=== PATIENT | female | born 1975 | race Caucasian/White ===

== ENCOUNTER 2023-08-07 11:29 | Outpatient (REF) | payer BC, SELFPAY ==
[2023-08-07 11:33] LABS: MANUAL DIFF FLAG NO
[2023-08-07 12:16] LABS: Basophils Percent Auto 0.5 % (0-2); Eosinophils Absolute Auto 0.3 X10*3/uL (0.0-0.4); Eosinophils Percent Auto 3.7 % (0-4); Imm Gran Abs Auto 0.04 X10*3/uL (0.00-0.03); Imm Gran Pct Auto 0.5 % (0.0-0.4); Lymphocytes Absolute Auto 2.4 X10*3/uL (1.2-4.9); Lymphocytes Percent Auto 29.9 % (20-40); Mean Corpuscular HGB Conc 33.3 g/dl (31.0-35.0); Mean Corpuscular Hemoglobin 30.5 pg (27.0-33.0); Mean Corpuscular Volume 91.5 fL (80.0-98.0); Mean Platelet Volume 11.3 fL (9.4-12.3); Monocytes Absolute Auto 0.5 X10*3/uL (0.1-1.2); Monocytes Percent Auto 5.7 % (2-11); Neutrophils Absolute Auto 4.7 x10*3/uL (2.0-8.3); Neutrophils Percent Auto 59.7 % (45-73); Platelet Count 311 X10*3/uL (160-400); Red Blood Count 4.59 X10*6/uL (4.20-5.50); Red Cell Distribution Width 12.5 % (11.0-16.0); White Blood Count 7.9 X10*3/uL (4.8-10.8)
[2023-08-07 12:21] LABS: Appearance Urine Cloudy; Color Urine Dark Yellow; Glucose Urine UA Negative (Negative); Leukocyte Esterase Urine Negative (Negative); Nitrite Urine Negative (Negative); PH 5.5 (5.0-9.0); Specific Gravity - Urine 1.025 (1.005-1.025); Urine Blood Negative (Negative); Urine Ketones Trace mg/dL (Negative); Urine Protein Negative (Neg-Trace)
[2023-08-07 12:27] LABS: Bacteria Urine 1+ (None Seen); Hyaline Casts Urine 0-2 /LPF (0-2); WBC Urine 0-5 /HPF (0-5)
[2023-08-07 12:48] LABS: Alanine Aminotransferase 16 U/L (0-31); Albumin Level 3.9 g/dL (3.5-5.0); Alkaline Phosphatase 91 U/L (39-117); Anion Gap 12 (12-20); Aspartate Amino Transferase 16 U/L (5-31); Bilirubin Total 0.7 mg/dL (0.0-1.0); Blood Urea Nitrogen 11 mg/dL (9-16); Carbon Dioxide 26 mmol/L (22-29); Chloride 105 mmol/L (96-108); Cholesterol 222 mg/dL (<200); Estimated Glomerular Filt Rate > 60; Glucose Fasting 145 mg/dL (60-99); HDL Cholesterol 43 mg/dL (>40); LDL Cholesterol Calculated 149 mg/dL (<100); Potassium 3.3 mmol/L (3.3-5.1); Sodium 140 mmol/L (135-145); Total Protein 6.9 g/dL (6.5-8.0); Triglycerides 154 mg/dL (<150)
== END 2023-08-07 11:30 | disposition home or self-care (01) ==
LOC: HO.LNP 11:29
PROVIDERS: Visit Provider Internal Medicine
DX: Z00.00 Encounter for general adult medical examination without abnormal findings (principal); I10 Essential (primary) hypertension
CPT/HCPCS: 80053; 80061; 81001; 85025

== ENCOUNTER 2024-04-01 08:09 | Outpatient (AMB) | payer BC, SELFPAY ==
--- NOTE | 2024-04-01 08:17 | MHC.OFFVIS ---
Vital Signs 04/01/24 08:23 Height 5 ft 6 in Weight 217 lb BMI 35.0 BP 142/73 H Blood Pressure Location Rt brachial Position Sitting Pulse 92 Intake Visit Reasons: localized swelling mass and lump unspecified Intake Note: Patient referred by pcp Dr. Cunningham for small bump on mid chest. Noticed smaller bump next to original spot 1m ago. Patient c/o: growths getting larger. No hx of skin CA. [employer] Required: No Accompanied by: Self / Same As Patient Allergies No Known Allergies Allergy (Verified 04/01/24 08:21) Medication List - Last Reconciled 04/01/24 by Lorenzo Huber MD bupropion HCl XL 300 mg PO DAILY valsartan-hydrochlorothiazide 80-12.5 mg 1 tab PO DAILY venlafaxine ER 150 mg PO DAILY HPI Comments Details: Patient presents for evaluation of 2 anterior chest wall sebaceous cyst. One of them has been there for almost 9 months time. The other wound is been there for a few weeks time. The latter 1 has become reddened and swollen. She would like to have these removed. Chart was reviewed patient evaluated. No such lesions elsewhere [facility] Medical History (Updated 04/01/24 @ 08:22 by FREDDIE Frye) HTN (hypertension) Social History (Updated 04/01/24 @ 08:23 by FREDDIE Frye) Patient Tobacco Use Status: Never used Tobacco Physical Exam Vital Signs: Last Vital Signs Pulse 92 04/01/24 08:23 BP 142/73 H 04/01/24 08:23 BMI result Body Mass Index 35.0 Chest Other: Proximally 3 x 2 cm sebaceous cyst left of midline chest and at proximally 2 x 1 cm sebaceous cyst lateral to this. The lateral 1 is mildly erythematous and tender. No evidence of any fluctuance. Assessment & Plan Assessment & Plan (1) Infected sebaceous cyst of skin: Code(s): L72.3 - Sebaceous cyst; L08.9 - Local infection of the skin and subcutaneous tissue, unspecified Category: Surgical Plan Current plan is treat the patient conservatively initially with antibiotics and local wound care and wants the inflammatory/infectious process has resolved, excision will be undertaken. All questions answered. Patient will see me approximate 1 week's time or p.r.n.. Script for antibiotics given. Medications: New cephalexin 500 mg PO TID 30 caps 0RF Coding Level of Care Code New Pt Level 4 (79703) Diagnoses Infected sebaceous cyst of skin L72.3; L08.9
[2024-04-01 08:23] VITALS: BP 142/73; PULSE 92; BMI 35.0
== END 2024-04-01 08:35 | disposition home or self-care (01) ==
PROVIDERS: PCP Internal Medicine; Referring Provider Internal Medicine; Visit Provider Surgery
DX: L72.3 Sebaceous cyst (principal); L08.9 Local infection of the skin and subcutaneous tissue, unspecified
CPT/HCPCS: 99204

== ENCOUNTER → 2024-04-01 08:09 | Outpatient (BNVA) | payer BC, SELFPAY | PROVIDERS: PCP Internal Medicine; Referring Provider Internal Medicine; Visit Provider Surgery ==

== ENCOUNTER 2024-04-08 10:52 | Outpatient (REF) | payer BC, SELFPAY | END 2024-04-08 10:53 | disposition home or self-care (01) | LOC: HO.LNP 10:52 | PROVIDERS: PCP Internal Medicine; Visit Provider Surgery | DX: L72.3 Sebaceous cyst (principal); L08.9 Local infection of the skin and subcutaneous tissue, unspecified; D17.1 Benign lipomatous neoplasm of skin and subcutaneous tissue of trunk | CPT/HCPCS: 11404; 88304 ==

== ENCOUNTER 2024-04-12 06:21 | Day surgery (SDC) | payer BC, SELFPAY ==
[2024-04-10 11:38] VITALS: BMI 34.9
--- NOTE | 2024-04-11 10:27 | P.CONAN_ITS ---
Documented by User: Maura Leo NP 04/11/24 10:27 HPI - Anesthesia Eval Consult details Narrative: 49yo F for ?Colonoscopy PMFSH Active Problems Active Problems: All Active Problems Lipoma of anterior chest wall (Acute) Infected sebaceous cyst of skin (Acute) Past Medical History Medical History (Updated 04/10/24 @ 11:35 by Delia Hampton RN) Anxiety Depression Elevated blood sugar HTN (hypertension) Surgical History Surgical History (Updated 04/12/24 @ 06:41 by Najma Quintanilla RN) H/O removal of cyst Hx of colonoscopy No pertinent past surgical history Social History Social History Patient Tobacco Use Status: Never used Tobacco Are you DNR?: No Advance Directives: No Advance Directives Information Provided: Yes Recently lost weight without trying: No Nutrition Risks: No Nutritional Risk Patient : No FDLMP: last month Meds Allergies Allergy/AdvReac Type Severity Reaction Status Date / Time No Known Allergies Allergy Verified 04/08/24 11:00 Home Medications ?Medication ?Instructions ?Recorded ?Confirmed ?Last Taken ?Type bupropion HCl 300 mg 24 hr tablet, 300 mg PO DAILY 04/01/24 04/12/24 04/11/24 Hi story extended release valsartan 80 1 tab PO DAILY 04/01/24 04/12/24 04/11/24 History mg-hydrochlorothiazide 12.5 mg tablet venlafaxine 150 mg 150 mg PO DAILY 04/01/24 04/12/24 04/11/24 History capsule,extended release 24 hr Exam Height,Weight and Vital Signs: Height 5 ft 6 in Weight 97.976 kg Assessment and Plan Assessment Anesthesia Assessment: Chart Reviewed Documented by User: Dwight Soriano MD 04/12/24 07:06 PMFSH Past Medical History Medical History (Updated 04/10/24 @ 11:35 by Delia Hampton RN) Anxiety Depression Elevated blood sugar HTN (hypertension) Family History Family history of problems with anesthesia: No Surgical History Surgical History (Updated 04/12/24 @ 06:41 by Najma Quintanilla RN) H/O removal of cyst Hx of colonoscopy No pertinent past surgical history History of Problems with Anesthesia: No Social History Social History Patient Tobacco Use Status: Never used Tobacco Are you DNR?: No Advance Directives: No Advance Directives Information Provided: Yes Recently lost weight without trying: No Nutrition Risks: No Nutritional Risk Patient : No FDLMP: last month Meds Allergies Allergy/AdvReac Type Severity Reaction Status Date / Time No Known Allergies Allergy Verified 04/08/24 11:00 Home Medications ?Medication ?Instructions ?Recorded ?Confirmed ?Last Taken ?Type bupropion HCl 300 mg 24 hr tablet, 300 mg PO DAILY 04/01/24 04/12/24 04/11/24 History extended release valsartan 80 1 tab PO DAILY 04/01/24 04/12/24 04/11/24 History mg-hydrochlorothiazide 12.5 mg tablet venlafaxine 150 mg 150 mg PO DAILY 04/01/24 04/12/24 04/11/24 History capsule,extended release 24 hr Exam Airway Mallampati Class: II TM Dist: >3cm Neck ROM: Full Assessment and Plan Assessment Anesthesia Assessment: Anesthesia Plan Discussed Final Anesthetic Review Family History of Problems with Anesthesia: No History of Problems with Anesthesia: No NPO: Yes ASA Class: II Final Preanesthetic Review: No Changes in Pt Med Stat, Meds/Allgs Chart Reviewed, Consent Obtained/Reviewed and Anes Risks/Benef Reviewed Patient Risk: Intermediate Procedure Risk: Low Anesthetic Plan Anesthetic Plan: TIVA Disposition: Standard PACU
[2024-04-12 06:25] VITALS: BP 142/85; PULSE 92; RESP 18; TEMP 36.2; O2SAT 98; BMI 34.7
[2024-04-12 06:51] LABS: UPreg QC Valid YES; Urine Pregnancy NEGATIVE (NEGATIVE)
[2024-04-12] MEDS: Lactated Ringers 1,000 ML 100 ML IVCONT (06:51)
--- NOTE | 2024-04-12 07:24 | P.HPSUR_ITS ---
Pre-Procedural Eval Section A - 24 Hr Update-Section A only Date of Service: 04/12/24 Section B - Complete if H&P > 30 days Chief Complaint: Encounter for screening for malignant neoplasm of Details of Present Illness: see H&P no changes Relevant Family History (Specify if Yes): No Relevant Social History: None Present Medications: see Short Stay Collaborative assessment Medical History: No relevant PMH History of Previous Operations: No relevant previous surgery Allergies: Allergies Allergy/AdvReac Type Severity Reaction Status Date / Time No Known Allergies Allergy Verified 04/08/24 11:00 Review of Systems Sugical H&P ROS: Negative: Constitution, Cardiovascular, Respiratory, Neurological, Psychiatric, Hem-Onc, Allergic/Immunologic, Gastrointestinal, Genitourinary, Musculoskeletal, Integumentary, Endocrine and Eyes/Ears/No se/Throat Exam Surgical H&P Exam: Normal: HEENT, Normal: Heart, Normal: Lungs, Normal: Extremities, Normal: Abdomen, Normal: Skin and Normal: Neurological Plan Diagnosis/Plan: Unchanged I have reviewed the history and physical and performed a pertinent physical examination on my patient. No changes have occurred unless specified. Time Spent With Patient Time: Total time managing care of this patient today ____ minutes.
[2024-04-12 08:12] VITALS: BP 102/67; PULSE 81; RESP 16; TEMP 36.6; O2SAT 98
--- NOTE | 2024-04-12 08:18 | PM.OP ---
Brief Operative Note Date of Service: 04/12/24 Pre-op diagnosis: screening Post-op diagnosis: same Procedure: colonoscpy Surgeon: Ricardo Hull MD Anesthesia: MAC Was an Watershed Coordinator used for this Procedure?: No Estimated blood loss (mL): 0 Pathology: none sent Condition: stable Disposition: PACU
[2024-04-12 08:27] VITALS: BP 122/81; PULSE 81; RESP 16; TEMP 36.6; O2SAT 96
--- NOTE | 2024-04-12 08:45 | OP_ITS ---
DATE OF SERVICE: 04/12/2024 SURGEON: Ricardo Hull MD INDICATIONS: Colon cancer screening. PREOPERATIVE DIAGNOSIS: POSTOPERATIVE DIAGNOSIS: PROCEDURE PERFORMED: Colonoscopy to the terminal ileum. ESTIMATED BLOOD LOSS: COMPLICATIONS: ANESTHESIA: Monitored anesthesia care. ASSISTANTS: SPECIMENS: DESCRIPTION OF PROCEDURE: A history and physical were performed. The risks and benefits of the procedure were explained to the patient, and informed consent was obtained. The patient was placed in the left lateral decubitus position. A digital rectal exam was performed and was found to be normal. The Olympus pediatric video colonoscope was introduced into the rectum and advanced to the cecum without difficulty. The cecum was identified by transillumination, palpation, and identification of ileocecal valve. Examination was performed, and the scope was removed. She tolerated the procedure well and was taken to recovery in stable condition. FINDINGS: The terminal ileum was examined and appeared normal. The visualized colonic mucosa was normal. The quality of prep was good. No polyps were identified. Retroflexed examination was normal. IMPRESSION: Normal colonoscopy. RECOMMENDATION: 1. Follow up as needed. 2. Repeat colonoscopy is recommended in 10 years for average-risk individuals. MD MANDA Pollack/ROMELIAL / [id number]
== END 2024-04-12 08:55 | disposition home or self-care (01) ==
PROVIDERS: Nurse Practitioner; PCP Internal Medicine; Visit Provider Internal Medicine Gastroenterology
PROC: 0DJD8ZZ Inspection of Lower Intestinal Tract, Via Natural or Artificial Opening Endoscopic (ICD-10-PCS; CPT 45378; principal; 2024-04-12 07:30)
DX: Z12.11 Encounter for screening for malignant neoplasm of colon (principal); I10 Essential (primary) hypertension; F41.9 Anxiety disorder, unspecified; F32.A Depression, unspecified; R73.9 Hyperglycemia, unspecified; Z79.899 Other long term (current) drug therapy
CPT/HCPCS: 45378; 81025; J2704

== ENCOUNTER → 2024-04-18 12:53 | Outpatient (BNVA) | payer BC, SELFPAY | PROVIDERS: PCP Internal Medicine; Visit Provider Surgery ==

== ENCOUNTER 2024-04-22 10:31 | Outpatient (AMB) | payer BC, SELFPAY ==
--- NOTE | 2024-04-22 10:32 | MHC.OFFVIS ---
Intake Visit Reasons: s/p cyst excision Intake Note: Patient here s/p cyst excision/ mid chest on 04-08-24. Patient reports Cephalexin course completed. Patient c/o: redness, inflammation. Managed Care Nurse Required: No Accompanied by: Self / Same As Patient Allergies No Known Allergies Allergy (Verified 04/22/24 10:33) HPI Comments Details: Patient presents for follow-up. She has some clear drainage from the incision but otherwise no other issues. Pathology was benign. PFSH Medical History Anxiety Depression Elevated blood sugar HTN (hypertension) Surgical History H/O removal of cyst Hx of colonoscopy No pertinent past surgical history Social History Patient Tobacco Use Status: Never used Tobacco Physical Exam Chest Other: Most central part of the incision is mildly remaining incision is clean dry and intact healing uneventfully Assessment & Plan Assessment & Plan (1) Postop check: Code(s): Z09 - Encounter for follow-up examination after completed treatment for conditions other than malignant neoplasm Category: Surgical Plan Patient has been given local instructions and will otherwise follow-up p.r.n.. All questions answered. Coding Level of Care Code Global (30567) Diagnoses Postop check Z09
== END 2024-04-22 10:38 | disposition home or self-care (01) ==
PROVIDERS: PCP Internal Medicine; Visit Provider Surgery
DX: Z09 Encounter for follow-up examination after completed treatment for conditions other than malignant neoplasm (principal)
CPT/HCPCS: 99024

== ENCOUNTER → 2024-04-22 10:31 | Outpatient (BNVA) | payer BC, SELFPAY | PROVIDERS: PCP Internal Medicine; Visit Provider Surgery ==

== ENCOUNTER 2024-06-24 14:23 | Outpatient (AMB) | payer BC, SELFPAY ==
[2024-06-24 14:27] VITALS: BMI 32.4
--- NOTE | 2024-06-24 14:27 | A.OFFVIS_ITS ---
VS Expanded 06/24/24 14:27 06/27/24 12:40 Height 5 ft 6 in 5 ft 6 in Weight 200 lb 9.93 oz 200 lb BMI 32.4 32.3 Intake Visit Reasons: Pre-DM/LVM Allergies No Known Allergies Allergy (Verified 04/22/24 10:33) Nutrition Presentation Details: Pt presents for MNT iniital visit for Pre-DM food frequency fruits: 0-1/d fish: 0-1/wk dairy: 3-4 serving/d vegetables 3-4 x/wk starches > 20 serving/d beverages: water/juice/coffee (12-16 oz of fluids/d) etoh/smoking--denies physical activity daily life activities BS Monitoring Most Recent Diabetes Results: Cholesterol 222 mg/dL (<200) H 08/07/23 HDL Cholesterol 43 mg/dL (>40) 08/07/23 Triglycerides 154 mg/dL (<150) H 08/07/23 Creatinine 0.74 mg/dL (0.5-1.4) 08/07/23 Blood Urea Nitrogen 11 mg/dL (9-16) 08/07/23 Sodium 140 mmol/L (135-145) 08/07/23 Potassium 3.3 mmol/L (3.3-5.1) 08/07/23 Chloride 105 mmol/L (96-108) 08/07/23 Carbon Dioxide 26 mmol/L (22-29) 08/07/23 Calcium 9.0 mg/dL (8.4-10.2) 08/07/23 AST 16 U/L (5-31) 08/07/23 ALT 16 U/L (0-31) 08/07/23 Total Protein 6.9 g/dL (6.5-8.0) 08/07/23 Albumin 3.9 g/dL (3.5-5.0) 08/07/23 FNP-Kgzmani-Fs.Jeor Equation Height: 5 ft 6 in Weight: 200 lb Resting Metabolic Rate: 1561.79 Calculated Activity Level: Mild Activity Calories Needed to Maintain Weight: 2147.46 Diagnosis Nutrition problem #1: food nutri know defi As related to (etiology) #1: diagnosis As evidenced by (sign/symptom) #1: knowledge deficit of diet [facility] Medical History Anxiety Depression Elevated blood sugar HTN (hypertension) Surgical History H/O removal of cyst Hx of colonoscopy No pertinent past surgical history Social History Patient Tobacco Use Status: Never used Tobacco Assessment & Plan Assessment & Plan (1) Pre-diabetes: Code(s): R73.03 - Prediabetes Category: Medical Plan: Wt: 91 Kg ( 06/25) Est kcal needs as per MSJ: 2200 (40% carb, 30% protein/fat) Est fluid needs as per 25-30 ml/d: 2700 Est prot per day as per 1 g/kg bw: 91 Recommend fiber intake : 8-10 g per day and gradually increase to 25-28 g per day for women and 35-38 g for men or as tolerated Recommend sodium intake per day : less than 2000 mg Educated patient on: ( R = reviewed V = verbalizes understanding N/R = needs review N/A = not applicable * Food sources of carbohydrate, adequate serving sizes and its role in various health conditions: R * Differences between complex carbohydrates a simple carbohydrates, role of fiber in diet: R V N/R * Lean protein sources of foods: R * Differences between types of fats and role in diet (mono on saturated fat fatty acids, saturated fatty acids, trans fats): R V N/R * Food sources of sodium in salt and healthy modifications for heart health in kidney health: R V R/V * Vitamins and minerals: R V N/R * Healthy plate method concept: R * Physical activity: Benefits a precaution: R * Hypoglycemia protocol (rule of 15): R V N/R * Dietary prevention of Hyperglycemia: R Patient Instructions: Work on following healthy plate emthod, choosing complex carbohydrates REduce sugar in beverages aim at reducing carb to 45-60 g at meal and 0-20 g as snack Coding Level of Care Code Nutr Indiv Intake (25467) Diagnoses Pre-diabetes R73.03 Time Spent (min) 30
[2024-07-01 11:10] VITALS: BMI 32.3
== END 2024-06-24 15:17 | disposition home or self-care (01) ==
PROVIDERS: PCP Internal Medicine; Visit Provider Dietitian, Registered
DX: R73.03 Prediabetes (principal)

== ENCOUNTER → 2024-06-24 14:23 | Outpatient (BNVA) | payer BC, SELFPAY | PROVIDERS: PCP Internal Medicine; Visit Provider Dietitian, Registered | DX: R73.03 Prediabetes (principal); Z71.3 Dietary counseling and surveillance | CPT/HCPCS: 97802 ==

== ENCOUNTER 2024-08-19 10:56 | Outpatient (AMB) | payer BC, SELFPAY ==
[2024-08-19 11:16] VITALS: BMI 32.8
--- NOTE | 2024-08-19 11:16 | A.OFFVIS_ITS ---
VS Expanded 08/19/24 11:16 Height 5 ft 6 in Weight 203 lb 0.732 oz BMI 32.8 Intake Visit Reasons: Pre-DM/CONFIRMED Allergies No Known Allergies Allergy (Verified 04/22/24 10:33) Nutrition Presentation Details: Pt presents for MNT for Pre DM Pt reports gradually making diet modifications challenges with evening meals/snacks physical activity: dailylife BS Monitoring Most Recent Diabetes Results: No Data to Display PFSH Medical History Anxiety Depression Elevated blood sugar HTN (hypertension) Surgical History H/O removal of cyst Hx of colonoscopy No pertinent past surgical history Social History Patient Tobacco Use Status: Never used Tobacco Assessment & Plan Assessment & Plan (1) Pre-diabetes: Code(s): R73.03 - Prediabetes Category: Medical Plan: Wt: 91 Kg ( 06/25) Est kcal needs as per MSJ: 2200 (40% carb, 30% protein/fat) Est fluid needs as per 25-30 ml/d: 2700 Est prot per day as per 1 g/kg bw: 91 Recommend fiber intake : 8-10 g per day and gradually increase to 25-28 g per day for women and 35-38 g for men or as tolerated Recommend sodium intake per day : less than 2000 mg Educated patient on: ( R = reviewed V = verbalizes understanding N/R = needs review N/A = not applicable * Food sources of carbohydrate, adequate serving sizes and its role in various health conditions: R * Differences between complex carbohydrates a simple carbohydrates, role of fiber in diet: R * Lean protein sources of foods: R * Differences between types of fats and role in diet (mono on saturated fat fatty acids, saturated fatty acids, trans fats): R * Food sources of sodium in salt and healthy modifications for heart health in kidney health: R V R/V * Vitamins and minerals: R V N/R * Healthy plate method concept: R * Physical activity: Benefits a precaution: R * Hypoglycemia protocol (rule of 15): R V N/R * Dietary prevention of Hyperglycemia: R Patient Instructions: Engage in physical activity routine 15 minutes 3 times /wk Coding Level of Care Code Nutr Indiv Subseq (88468) Diagnoses Pre-diabetes R73.03 Time Spent (min) 25
== END 2024-08-19 11:48 | disposition home or self-care (01) ==
PROVIDERS: PCP Internal Medicine; Visit Provider Dietitian, Registered
DX: R73.03 Prediabetes (principal)

== ENCOUNTER → 2024-08-19 10:56 | Outpatient (BNVA) | payer BC, SELFPAY | PROVIDERS: PCP Internal Medicine; Visit Provider Dietitian, Registered | DX: R73.03 Prediabetes (principal); Z71.3 Dietary counseling and surveillance | CPT/HCPCS: 97803 ==

== ENCOUNTER 2025-09-01 10:20 | Outpatient (REF) | payer BC, SELFPAY ==
[2025-09-01 10:24] LABS: MANUAL DIFF FLAG NO
[2025-09-01 11:19] LABS: Alanine Aminotransferase 18 U/L (0-31); Albumin Level 4.5 g/dL (3.5-5.0); Alkaline Phosphatase 84 U/L (39-117); Anion Gap 10 (12-20); Aspartate Amino Transferase 22 U/L (5-31); Blood Urea Nitrogen 19 mg/dL (9-16); Calcium 9.1 mg/dL (8.4-10.2); Carbon Dioxide 28 mmol/L (22-29); Chloride 107 mmol/L (96-108); Cholesterol 215 mg/dL (<200); Estimated Glomerular Filt Rate > 60; HDL Cholesterol 46 mg/dL (>40); Potassium 3.6 mmol/L (3.3-5.1); Sodium 141 mmol/L (135-145); Total Protein 6.9 g/dL (6.5-8.0); Triglycerides 92 mg/dL (<150)
[2025-09-01 11:20] LABS: Hematocrit 42.0 % (37.0-47.0); Hemoglobin 14.0 g/dl (12.0-16.0); Imm Gran Abs Auto 0.02 X10*3/uL (0.00-0.03); Imm Gran Pct Auto 0.3 % (0.0-0.4); Lymphocytes Absolute Auto 2.1 X10*3/uL (1.2-4.9); Mean Corpuscular HGB Conc 33.3 g/dl (31.0-35.0); Mean Corpuscular Hemoglobin 30.1 pg (27.0-33.0); Mean Corpuscular Volume 90.3 fL (80.0-98.0); NRBC Abs Auto 0.000 X10*3/uL (0.0-0.012); NRBC Pct Auto 0.0 /100WBC (0.0-0.2); Platelet Count 311 X10*3/uL (160-400); Red Blood Count 4.65 X10*6/uL (4.20-5.50); White Blood Count 6.7 X10*3/uL (4.8-10.8)
[2025-09-01 11:21] LABS: Appearance Urine Clear; Glucose Urine UA Negative (Negative); PH 6.0 (5.0-9.0); Specific Gravity - Urine 1.025 (1.005-1.025); UMIC TRIGGER UACC YES
--- OUTSIDE RECORDS SUMMARY | 2025-09-01 12:54 | XMS_ITS ---
[facility] Organization Unknown Care Team Organization Name Specialty Phone Email Start Date End Da te [facility] NULL Primary Care 08/09/2022 05/20/2024
--- OUTSIDE RECORDS SUMMARY | 2025-09-01 12:55 | XMS_ITS | Encounter Summary ---
Author Organization [facility] Address [address] [place] [address] Care Team Providers Care Reference Investigator Name Role Phone Rm Cunningham MD Primary Care Provider Encounter Details Date Type Department Care Team (Late st Contact Info) Description 08/22/[address] [facility] - Main Lab [address] [facility] [place] [address] Rm Cunningham MD [address] [place] [address] [address] [place] [address] [phone] Encounter for general adult medical examination without abnormal findings; Essential (primary) hypertension Social History Tobacco Use Types Packs/Day Years Used Date Smoking Tobacco: Never Assessed Comments Unknown Sex and Gender Information Value Date Recorded Sex Assigned at Female 05/09/2025 8:22 AM EDT Legal Sex Female 8:46 PM EST Gender Identity Female 05/09/2025 8:23 AM EDT Sexual Orientation Straight 05/09/2025 8: 23 AM EDT documented as of this encounter Plan of Treatment Upcoming Encounters Date Type Department Care Team (Late st Contact Info) Description 09/01/2025 2:00 PM EST Consult Orthopedic Surgery - [place] [address] [place] [address] Vicky Kebede PA [address] [place] [address] documented as of this encounter Procedures Procedure Name Priority Date/Time Associated Diagnosis Comments URINALYSIS WITH REFLEX MICROSCOPIC AND CULTURE Routine 08/22/2024 8:30 AM EST Encounter for general adult medical examination without abnormal findings Essential (primary) hypertension LIPID PANEL WITH REFLEX TO DIRECT LDL Routine 08/22/2024 8:30 AM EST Encounter for general adult medical examination without abnormal findings Essential (primary) hypertension CBC WITH AUTO DIFFERENTIAL Routine 08/22/2024 8:30 AM EST Encounter for general adult medical examination without abnormal findings Essential (primary) hypertension URINALYSIS WITH REFLEX MICROSCOPIC AND CULTURE Routine 08/22/2024 8:30 AM EST Encounter for general adult medical examination without abnormal findings Essential (primary) hypertension CBC AND DIFFERENTIAL Routine 08/22/2024 8:30 AM EST Encounter for general adult medical examination without abnormal findings Essential (primary) hypertension COMPREHENSIVE METABOLIC PANEL Routine 08/22/2024 8:30 AM EST Encounter for general adult medical examination without abnormal findings Essential (primary) hypertension documented in this encounter Results * Urinalysis with reflex microscopic and culture (08/22/2024 8:30 AM EST) Specific [place] Urine 1.018 1.003 - 1.030 LAB URINALYSIS - AUTOMATED METHOD 08/22/2024 1:18 PM [facility] pH, Urine 5.5 5.0 - 8.0 pH LAB URINALYSIS - AUTOMATED METHOD 08/22/2024 1:18 PM [facility] Leukocytes, Urine Negative Negative LAB URINALYSIS - AUTOMATED METHOD 08/22/2024 1:18 PM [facility] Nitrite, Urine Negative Negative LAB URINALYSIS - AUTOMATED METHOD 08/22/2024 1:18 PM [facility] Protein, Urine Negative <=Trace mg/dL LAB URINALYSIS - AUTOMATED METHOD 08/22/2024 1:18 PM [facility] Glucose, Urine Negative Negative mg/dL LAB URINALYSIS - AUTOMATED METHOD 08/22/2024 1:18 PM [facility] Ketones, Urine Negative Negative mg/dL LAB URINALYSIS - AUTOMATED METHOD 08/22/2024 1:18 PM [facility] Urobilinogen, Urine 0.2 0.2 - 1.0 mg/dL LAB URINALYSIS - AUTOMATED METHOD 08/22/2024 1:18 PM [facility] Bilirubin, Urine Negative Negative LAB URINALYSIS - AUTOMATED METHOD 08/22/2024 1:18 PM [facility] Blood, Urine Negative Negative LAB URINALYSIS - AUTOMATED METHOD 08/22/2024 1:18 PM [facility] Urine Urine specimen obtained by clean catch procedure / Unknown 08/22/2024 8:30 AM EST 08/22/2024 8:43 AM EST us Rm Cunningham MD LAB URINE ORDERABLES Final Result [facility] [address] [place] [address], [place] [phone] * (ABNORMAL) CBC auto differential (08/22/2024 8:30 AM EST) WBC 8.6 4.8 - 10.8 K/mcL LAB HEMETOLOGY METHOD 08/22/2024 8:55 AM [facility] RBC 4.60 3.80 - 4.80 M/[facility] LAB HEMETOLOGY METHOD 08/22/2024 8:55 AM [facility] Hemoglobin 13.8 11.5 - 16.0 g/dL LAB HEMETOLOGY METHOD 08/22/2024 8:55 AM [facility] Hematocrit 41.7 35.0 - 47.0 % LAB HEMETOLOGY METHOD 08/22/2024 8:55 AM [facility] MCV 91.4 79.0 - 98.0 FL LAB HEMETOLOGY METHOD 08/22/2024 8:55 AM [facility] MCH 30.3 27.0 - 32.0 pcg LAB HEMETOLOGY METHOD 08/22/2024 8:55 AM [facility] MCHC 33.1 32.0 - 37.0 g/dL LAB HEMETOLOGY METHOD 08/22/2024 8:55 AM [facility] RDW 12.7 11.0 - 15.0 % LAB HEMETOLOGY METHOD 08/22/2024 8:55 AM [facility] Platelets 294 130 - 400 K/mcL LAB HEMETOLOGY METHOD 08/22/2024 8:55 AM [facility] MPV 11.0 7.0 - 11.0 FL LAB HEMETOLOGY METHOD 08/22/2024 8:55 AM [facility] NRBC 0.0 <1.0 % LAB HEMETOLOGY METHOD 08/22/2024 8:55 AM [facility] NRBC Absolute 0.00 <0.10 K/mcL LAB HEMETOLOGY METHOD 08/22/2024 8:55 AM [facility] Neutrophils Relative 55.9 % LAB HEMETOLOGY METHOD 08/22/2024 8:55 AM [facility] Lymphocytes Relative 31.7 % LAB HEMETOLOGY METHOD 08/22/2024 8:55 AM [facility] Monocytes Relative 5.5 % LAB HEMETOLOGY METHOD 08/22/2024 8:55 AM [facility] Eosinophils Relative 5.9 % LAB HEMETOLOGY METHOD 08/22/2024 8:55 AM [facility] Basophils Relative 0.7 % LAB HEMETOLOGY METHOD 08/22/2024 8:55 AM [facility] Immature Granulocytes Relative 0.3 % LAB HEMETOLOGY METHOD 08/22/2024 8:55 AM [facility] Neutrophils Absolute 4.80 1.50 - 7.00 K/mcL LAB HEMETOLOGY METHOD 08/22/2024 8:[address] [facility] Lymphocytes Absolute 2.73 1.00 - 5.00 K/[facility] LAB HEMETOLOGY METHOD 08/22/2024 8:[address] [facility] Monocytes Absolute 0.47 0.20 - 1.00 K/[facility] LAB HEMETOLOGY METHOD 08/22/2024 8:[address] [facility] Eosinophils Absolute 0.51(H) 0.00 - 0.50 K/[facility] LAB HEMETOLOGY METHOD 08/22/2024 8:[address] [facility] Basophils Absolute 0.06 0.00 - 0.20 K/[facility] LAB HEMETOLOGY METHOD 08/22/2024 8:55 AM [facility] Immature Granulocytes Absolute 0.03 0.00 - 0.03 K/[facility] LAB HEMETOLOGY METHOD 08/22/2024 8:[address] [facility] Blood Venous blood specimen / Unknown 08/22/2024 8:30 AM EST 08/22/2024 8:43 AM EST us Rm Cunningham MD LAB BLOOD ORDERABLES Final Result [facility] [address] [place] [address], * (ABNORMAL) Lipid panel with reflex to direct LDL (08/22/2024 8:30 AM EST) Cholesterol 226(H) 0 - 200 mg/dL LAB CHEMISTRY METHOD 08/22/2024 9:[address] [facility] Triglycerides 109 0 - 150 mg/dL LAB CHEMISTRY METHOD 08/22/2024 9:56 AM [facility] HDL 56 >=40 mg/dL LAB CHEMISTRY METHOD 08/22/2024 9:[address] [facility] LDL Calculated 148(H) 0 - 100 mg/dL LAB CHEMISTRY METHOD 08/22/2024 9:[address] [facility] VLDL Cholesterol Darshan 21.8 mg/dL LAB CHEMISTRY METHOD 08/22/2024 9:56 AM [facility] Non HDL Chol. (LDL+VLDL) 170(H) <145 mg/dL LAB CHEMISTRY METHOD 08/22/2024 9:56 AM [facility] Chol/HDL Ratio 4.0 0.0 - 4.4 LAB CHEMISTRY METHOD 08/22/2024 9:56 AM [facility] Blood Venous blood specimen / Unknown 08/22/2024 8:30 AM EST 08/22/2024 8:43 AM EST us Rm Cunningham MD LAB BLOOD ORDERABLES Final Result [facility] [address] [place] [address], * (ABNORMAL) Comprehensive metabolic panel (08/22/2024 8:30 AM EST) Sodium 139 133 - 145 mmol/L LAB CHEMISTRY METHOD 08/22/2024 9:56 AM [facility] Potassium 3.8 3.5 - 5.5 mmol/L LAB CHEMISTRY METHOD 08/22/2024 9:56 AM [facility] Chloride 104 96 - 110 mmol/L LAB CHEMISTRY METHOD 08/22/2024 9:56 AM [facility] CO2 31 21 - 32 mmol/L LAB CHEMISTRY METHOD 08/22/2024 9:56 AM [facility] Anion Gap 4 3 - 11 LAB CHEMISTRY METHOD 08/22/2024 9:56 AM [facility] Glucose 109(H) 70 - 100 mg/dL LAB CHEMISTRY METHOD 08/22/2024 9:56 AM [facility] BUN 17 5 - 25 mg/dL LAB CHEMISTRY METHOD 08/22/2024 9:56 AM [facility] Creatinine 0.72 0.50 - 1.10 mg/dL LAB CHEMISTRY METHOD 08/22/2024 9:56 AM [facility] eGFR 104 >=60 mL/min/1. 73m2 LAB CHEMISTRY METHOD 08/22/2024 9:56 AM [facility] Comment:Calculation based on the Chronic Kidney Disease Epidemiology Collaboration (CKD-EPI) equation refit without adjustment for race. BUN/Creatinine Ratio 23.6 LAB CHEMISTRY METHOD 08/22/2024 9:56 AM [facility] Calcium 9.4 8.5 - 10.5 mg/dL LAB CHEMISTRY METHOD 08/22/2024 9:56 AM [facility] AST (SGOT) 14 10 - 42 unit/L LAB CHEMISTRY METHOD 08/22/2024 9:56 AM [facility] ALT (SGPT) 27 10 - 60 unit/L LAB CHEMISTRY METHOD 08/22/2024 9:56 AM [facility] Alkaline Phosphatase 108 42 - 121 unit/L LAB CHEMISTRY METHOD 08/22/2024 9:56 AM [facility] Total Protein 7.2 6.0 - 8.0 g/dL LAB CHEMISTRY METHOD 08/22/2024 9:56 AM [facility] Albumin 4.0 3.2 - 5.0 g/dL LAB CHEMISTRY METHOD 08/22/2024 9:56 AM [facility] Total Bilirubin 0.7 0.0 - 1.4 mg/dL LAB CHEMISTRY METHOD 08/22/2024 9:56 AM [facility] Blood Venous blood specimen / Unknown 08/22/2024 8:30 AM EST 08/22/2024 8:43 AM EST us Rm Cunningham MD LAB BLOOD ORDERABLES Final Result [facility] [address] [place] [address], documented in this encounter Visit Diagnoses Diagnosis Encounter for general adult medical examination without abnormal findings Essential (primary) hypertension Unspecified essential hypertension documented in this encounter Care Teams Reference Investigator Relationship Specialty Start Date End Date Rm Cunningham MD [address] [place] [id number] PCP - General Internal Medicine 06/06/25 documented as of this encounter
--- OUTSIDE RECORDS SUMMARY | 2025-09-01 12:55 | XMS_ITS | Clinical Summary ---
Author Organization [address] Address [address] [place] [address] Phone Care Team Providers Care Customer Retention Representative Name Role Phone Rm Cunningham MD Primary Care Provider Encounters Date Type Department Care Team Description 06/06/2025 8:00 AM EDT - 06/06/2025 11:59 PM EDT Hospital Encounter [facility] [address] [place] [address] Encounter for screening mammogram for malignant neoplasm of breast Discharge Disposition: Home or Self Care from Last 3 Months Social History Tobacco Use Types Packs/Day Years Used Date Smoking Tobacco: Never Assessed Comments No Sex and Gender Information Value Date Recorded Sex Assigned at Female 05/09/2025 8:22 AM EDT Legal Sex Female 8:46 PM EST Gender Identity Female 05/09/2025 8:23 AM EDT Sexual Orientation Straight 05/09/2025 8: 23 AM EDT Obstetrics History Para Term AB IAB SAB Ectopic Multiple Livin g Live Births 2 Last Filed Vital Signs Vital Sign Reading Time Taken Comments Blood Pressure - - Pulse - - Temperature - - Respiratory Rate - - Oxygen Saturation - - Inhaled Oxygen Concentration - - Weight - - Height 167.6 cm (5' 6 ) 06/06/2025 8:12 AM EDT Body Mass Index - - Plan of Treatment Upcoming Encounters Date Type Department Care Team (Late st Contact Info) Description 09/01/2025 2:00 PM EST Consult Orthopedic Surgery - [place] [address] [address] Vicky Kebede PA [address] [facility] [address] [place] [address] Health Maintenance Due Date Last Done Comments Colorectal Cancer Screening: Colonoscopy 1977 DTaP,Tdap,and Td Vaccines (1 - Tdap) 1996 Hepatitis B Vaccines (1 of 3 - 19+ 3-dose series) 1996 Cervical Cancer Screening: Pap Smear 1998 HIV Screening 11/01/2019 Hepatitis C Screening 11/01/2019 Social Influencers of Health Screening 11/01/2019 Depression Screening 10/02/2024 COVID-19 Vaccine ( season) 2025 08/04/2022, 08/23/2021, 10/13/2020, Additional history exists Influenza Vaccine (#1) 2025 07/19/2023, 2020 Breast Cancer Screening 06/06/2027 06/06/20, 02/27/2024, 02/23/2023, Additional history exists Cholesterol Screening (Lipid Panel) 08/22/2029 08/22/2024 RSV Immunization Adult Patients (1 - 1-dose 75+ series) 2052 HIB Vaccines Aged Out No longer eligi ble based on patient's age to complete this topic HPV Vaccines Aged Out No longer eligi ble based on patient's age to complete this topic Hepatitis A Vaccines Aged Out No long er eligible based on patient's age to complete this topic IPV Vaccines Aged Out No longer eligi ble based on patient's age to complete this topic MMR Vaccines Aged Out No longer eligi ble based on patient's age to complete this topic Meningococcal ACWY Vaccine Aged Out N o longer eligible based on patient's age to complete this topic Meningococcal B Vaccine Aged Out No l onger eligible based on patient's age to complete this topic Pneumococcal Vaccine: Pediatrics (0 to 5 Years) and At-Risk Patients (6 to 49 Years) Aged Out No longer eligible based on patient's age to complete this topic RSV Immunization Patients Under 20 months Aged Out No longer eligible based on patient's age to complete this topic Varicella Vaccines Aged Out No longer eligible based on patient's age to complete this topic Procedures Procedure Name Priority Date/Time Associated Diagnosis Comments MG MAMMO DIGITAL SCREENING W MANPREET BILAT Routine 06/06/2025 8:18 AM EDT Encounter for screening mammogram for malignant neoplasm of breast LIPID PANEL WITH REFLEX TO DIRECT LDL Routine 08/22/2024 8:30 AM EST Encounter for general adult medical examination without abnormal findings Essential (primary) hypertension from Last 3 Months or Most Recently Relevant to Health Maintenance Results * MG Mammo Digital Screening w Manpreet bilat (06/06/2025 8:18 AM EDT) Anatomical Region Laterality Modality Breast Bilateral Mammography 06/06/2025 8:23 AM EDT Impressions 06/06/2025 8:27 AM EDT No mammographic evidence of malignancy. A negative mammogram in the presence of a clinically suspicious palpable abnormality does not preclude the possibility of malignancy or alter the indications for biopsy. PQRI CPT II 3342F Code 77492, 84636 PQRI 225 CPT II 7025F TISSUE DENSITY: There are scattered areas of fibroglandular density. (BI-RADS category B) IMPRESSION: Benign. BI-RADS CATEGORY: 2 - BENIGN RECOMMENDATION: Screening bilateral mammogram is recommended in 1 year. Mammo Location: [facility], [facility], [address] [place] [address] -------- FINAL REPORT -------- Dictated By: Ga Porras Dictated Date: 06/06/2025 08:23 ET Assigned Physician: Ga Porras Reviewed and Electronically Signed By: Ga Porras Signed Date: 06/06/2025 08:27 ET Workstation ID: [id number] Transcribed By: Self Edit Transcribed Date: 06/06/2025 08:23 ET Narrative 06/06/2025 8:27 AM EDT CLINICAL: The patient is a 50 years Female presenting for routine screening mammography. COMPARISON: Most recently 02/27/2024 and most remotely 07/03/2017. TECHNIQUE: Full-field digital mammography of the breasts bilaterally consisting of tomosynthesis in MLO and CC projection is performed in the [employer] 2000-D unit. Computer aided detection utilizing the iCAD system was utilized. FINDINGS: The breasts are again seen to be composed of a combination of fatty and fibroglandular elements. A few scattered benign punctate calcifications bilaterally are stable. There is no suspicious cluster of microcalcifications, mass, or area of architectural distortion. There is no skin thickening or nipple retraction. Procedure Note Ga Porras MD - 06/06/2025 CLINICAL: The patient is a 50 years Female presenting for routinescreening mammography. COMPARISON: Most recently 02/27/2024 and most remotely 07/03/2017. TECHNIQUE: Full-field digital mammography of the breasts bilaterallyconsisting of tomosynthesis in MLO and CC projection is performed in the[employer] 2000-D unit. Computer aided detection utilizing the [employer] was utilized. FINDINGS: The breasts are again seen to be composed of a combination offatty and fibroglandular elements. A few scattered benign punctatecalcifications bilaterally are stable. There is no suspicious cluster ofmicrocalcifications, mass, or area of architectural distortion. There isno skin thickening or nipple retraction. IMPRESSION: No mammographic evidence of malignancy. A negative mammogram in the presence of a clinically suspicious palpableabnormality does not preclude the possibility of malignancy or alter theindications for biopsy. PQRI CPT II 3342F Code 43824, 12817 PQRI 225 CPT II 7025F TISSUE DENSITY: There are scattered areas of fibroglandular density.(BI-RADS category B) IMPRESSION: Benign. BI-RADS CATEGORY: 2 - BENIGN RECOMMENDATION: Screening bilateral mammogram is recommended in 1 year. Mammo Location: [facility], [facility], [address] [place] [id number] -------- FINAL REPORT -------- Dictated By: Ga Porras Dictated Date: 06/06/2025 08:23 ET Assigned Physician: Ga Porras Reviewed and Electronically Signed By: Ga Porras Signed Date: 06/06/2025 08:27 ET Workstation ID: [id number] Transcribed By: Self Edit Transcribed Date: 06/06/2025 08:23 ET us Cleo CHAVEZ IMG BI PROCEDURES Final Result * (ABNORMAL) Lipid panel with reflex to direct LDL (08/22/2024 8:30 AM EST) Cholesterol 226(H) 0 - 200 mg/dL LAB CHEMISTRY METHOD 08/22/2024 9:56 AM [facility] Triglycerides 109 0 - 150 mg/dL LAB CHEMISTRY METHOD 08/22/2024 9:56 AM [facility] HDL 56 >=40 mg/dL LAB CHEMISTRY METHOD 08/22/2024 9:56 AM [facility] LDL Calculated 148(H) 0 - 100 mg/dL LAB CHEMISTRY METHOD 08/22/2024 9:56 AM [facility] VLDL Cholesterol Darshan 21.8 mg/dL LAB CHEMISTRY METHOD 08/22/2024 9:56 AM [facility] Non HDL Chol. (LDL+VLDL) 170(H) <145 mg/dL LAB CHEMISTRY METHOD 08/22/2024 9:56 AM [facility] Chol/HDL Ratio 4.0 0.0 - 4.4 LAB CHEMISTRY METHOD 08/22/2024 9:[address] [facility] Blood Venous blood specimen / Unknown 08/22/2024 8:30 AM EST 08/22/2024 8:43 AM EST us Rm Cunningham MD LAB BLOOD ORDERABLES Final Result [facility] [address] [place] [address], from Last 3 Months or Most Recently Relevant to Health Maintenance Insurance [facility] Care Teams Customer Retention Representative Relationship Specialty Start Date End Date Rm Cunningham MD [address] [place] [address] [phone] PCP - General Internal Medicine 06/06/25
--- OUTSIDE RECORDS SUMMARY | 2025-09-01 12:55 | XMS_ITS | Clinical Summary ---
Author Organization [facility] Address [address] [place] [phone] Phone Care Team Providers Care Electronic Integrated Systems Mechanic Name Role Phone Rm Cunningham MD Primary Care Provider Allergies Active Allergy Reactions Criticality Noted Date Comments Lisinopril Cough 09/30/2024 Medications valsartan-hydro CHLOROthiazide (DIOVAN-HCT) 80-12.5 mg per tablet Take 1 tablet by mouth daily. Active buPROPion (WELLBUTRIN XL) 300 MG ER 24 hr tablet TAKE 1 TABLET BY MOUTH EVERY DAY IN THE MORNING FOR 90 DAYS for 90 Active venlafaxine (EFFEXOR-XR) 150 MG 24 hr capsule 1 capsule with food Orally Once a day Active venlafaxine (EFFEXOR-XR) 37.5 MG 24 hr capsule 1 capsule with food Orally Once a day Active Active Problems Problem Noted Date Diagnosed Date Attention deficit hyperactivity disorder 015 Obsessive-compulsive disorder 05/04/2015 Depressive disorder 12/09/2013 Generalized anxiety disorder 07/18/2011 Immunizations No known immunizations Social History Tobacco Use Types Packs/Day Years Used Date Smoking Tobacco: Never Smokeless Tobacco: Never Tobacco Cessation:Counseling Given: Not Answered Education Answer Date Recorded Are you interested in more education? Not on veronica e 09/30/2024 Are you concerned about learning? Not on file 09/30/2024 No 09/30/2024 No 09/30/2024 Digital Access Answer Date Recorded No 09/30/2024 No 09/30/2024 Reliable internet access at home? Not on file 09/30/2024 Device with a working camera? Not on file Comments Unknown Sex and Gender Information Value Date Recorded Sex Assigned at Not on file Legal Sex Female 8:41 AM EST Gender Identity Not on file Sexual Orientation Not on file Last Filed Vital Signs Vital Sign Reading Time Taken Comments Blood Pressure 127/82 09/30/2024 9:44 AM EST Pulse 84 09/30/2024 9:44 AM EST Temperature 36.4 C (97.5 F) 09/30/2024 9:44 AM EST Respiratory Rate 18 09/30/2024 9:44 AM EST Oxygen Saturation 96% 09/30/2024 9:44 AM EST Inhaled Oxygen Concentration - - Weight - - Height - - Body Mass Index - - Plan of Treatment Health Maintenance Due Date Last Done Comments Adult Td,Tdap Booster 1977 CREATININE LEVEL 1977 POTASSIUM LEVEL 1977 DEPRESSION SCREENING 1989 HEPATITIS C SCREENING 1995 HIV ONE-TIME SCREENING (18-65 YEARS) 1995 PAP SMEAR 1998 MAMMOGRAM 2017 COLOGUARD 2022 COLONOSCOPY 2022 COLORECTAL CANCER SCREENING 2022 FIT TEST 2022 FOBT 2022 SIGMOIDOSCOPY 2022 VIRTUAL COLONOSCOPY 2022 INFLUENZA VACCINE (#1) 2025 07/19/2023, 2020 COVID-19 VACCINE (2024- season) 2025 08/04/2022, 08/04/2022, 08/23/2021, Additional history exists LIPID PANEL 08/22/2029 08/22/2024 SMOKING STATUS SCREENING (Once After 26 Yrs) Completed 09/30/2024 HEPATITIS A VACCINES Aged Out No long er eligible based on patient's age to complete this topic HIB VACCINES Aged Out No longer eligi ble based on patient's age to complete this topic MENINGOCOCCAL VACCINES (ACWY) Aged Out No longer eligible based on patient's age to complete this topic MENINGOCOCCAL VACCINES (B) Aged Out N o longer eligible based on patient's age to complete this topic PNEUMOCOCCAL VACCINES (0-49 years) Aged Out No longer eligible based on patient's age to complete this topic Medical Devices Not on file Insurance [facility] Care Teams Electronic Integrated Systems Mechanic Relationship Specialty Start Date End Date Rm Cunningham MD [address] [place] [address] [place] [address] PCP - General Internal Medicine 09/30/24 Additional Source Comments The information contained in this document represents components of the legal health record. It is not the complete legal health record.[facility]
== END 2025-09-01 10:21 | disposition home or self-care (01) ==
LOC: HO.LNP 10:20
PROVIDERS: Visit Provider Internal Medicine
DX: Z00.00 Encounter for general adult medical examination without abnormal findings (principal); I10 Essential (primary) hypertension
CPT/HCPCS: 80053; 80061; 81001; 85025

== ENCOUNTER 2025-09-08 13:00 | Outpatient (REF) | payer BC, SELFPAY ==
[2025-09-08 13:19] LABS: Appearance Urine Clear; Glucose Urine UA Negative (Negative); PH 6.0 (5.0-9.0); Specific Gravity - Urine 1.015 (1.005-1.025)
== END 2025-09-08 13:01 | disposition home or self-care (01) ==
LOC: HO.LNP 13:00
PROVIDERS: Visit Provider Internal Medicine
DX: Z00.00 Encounter for general adult medical examination without abnormal findings (principal)
CPT/HCPCS: 81001